=== PATIENT | female | born 1975 | race Caucasian/White ===

== ENCOUNTER → 2016-09-24 | Outpatient (CLI) | payer OTHER | LOC: LAB 14:40 | DX: Z02.1 Encounter for pre-employment examination (principal) | CPT/HCPCS: 86706 ==

== ENCOUNTER → 2021-04-15 | Outpatient (CLI) | payer BC | LOC: EXRD 10:31 | DX: Z11.59 Encounter for screening for other viral diseases (principal); R93.7 Abnormal findings on diagnostic imaging of other parts of musculoskeletal system | CPT/HCPCS: 72202 ==